=== PATIENT | male | born 1975 | race Caucasian/White ===

== ENCOUNTER 2017-10-08 17:28 | Emergency (ER) | payer OTHER ==
[2017-10-08] MEDS ORDERED: HYDROmorphone 0.5 MG/0.5 ML SYRINGE IVPUSH ONE (17:51)
[2017-10-08] MEDS ORDERED: Ondansetron 4 MG/2 ML SDV IVPUSH ONE (17:51)
[2017-10-08 18:23] VITALS: BP 107/89
[2017-10-08] MEDS ORDERED: Lidocaine 1% 50 ML MDV INJECT ONE (19:23)
--- NOTE | 2017-10-08 19:39 | EDM.PDOC ---
ED HPI GENERAL MEDICAL PROBLEM - General Chief Complaint: Upper Extremity Injury/Pain Stated Complaint: L) hand laceration Time Seen by Provider: 10/08/17 18:06 Source of Information: Reports: Patient History Limitations: Reports: No Limitations - History of Present Illness INITIAL COMMENTS - FREE TEXT/NARRATIVE: Patient is a 42-year-old male who presents ED complaining of multiple lacerations to the right hand. Patient was working with a cutting valve grinder and it got bound up and jumped hitting his hand causing the lacerations. He has 2 significant lacerations to the hand. The first being along the second metacarpal which is quite deep with foreign debris noted. Bleeding is present. The second is noted to the base of the right thumb and is not as significant. Tetanus status is unknown. He has no sensorimotor deficits. No pain noted to the remainder aspect of the hand or fingers. No pain to the wrist. No acute complaints at this time. Right Hand Pain Score (Numeric/FACES): 8 - Related Data Allergies Allergy/AdvReac Type Severity Reaction Status Date / Time Penicillins Allergy Rash Verified 10/08/17 18:02 Home Meds: Home Meds Acetaminophen/HYDROcodone [[place] 325-5 MG] 1 tab PO Q6H PRN #12 tablet 10/08/17 [Rx] Cephalexin [Keflex] 500 mg PO QID #40 cap 10/08/17 [Rx] Cholecalciferol (Vitamin D3) [Vitamin D3] 0 unit PO DAILY 10/08/17 [History] Vitamin B Complex 1 cap PO DAILY 10/08/17 [History] Past Medical History - Past Health History Medical/Surgical History: Denies Medical/Surgical History HEENT History: Reports: Impaired Vision Other HEENT History: wears eyeglasses - Infectious Disease History Infectious Disease History: Reports: Chicken Pox - Past Surgical History HEENT Surgical History: Reports: Tonsillectomy Social & Family History - Tobacco Use Smoking Status *Q: Never Smoker Second Hand Smoke Exposure: No - Caffeine Use Caffeine Use: Reports: Coffee - Recreational Drug Use Recreational Drug Use: No Review of Systems - Review of Systems Review Of Systems: ROS reveals no pertinent complaints other than HPI. ED EXAM, GENERAL - Physical Exam Exam: See Below Exam Limited By: No Limitations General Appearance: Alert, WD/WN, No Apparent Distress Ears: Hearing Grossly Normal Nose: Normal Inspection Throat/Mouth: Normal Voice, No Airway Compromise Neck: Normal Inspection, Supple Respiratory/Chest: No Respiratory Distress, No Accessory Muscle Use Cardiovascular: Normal Peripheral Pulses, Regular Rate, Rhythm Peripheral Pulses: 4+: Radial (R) Extremities: Other (Possibly 3 cm deep laceration to the dorsal aspect of the right hand along the second metacarpal. Foreign debris noted. In addition second laceration measuring approximately 2 cm along the first metacarpal subcutaneous no bleeding present. All proximal to this laceration other 0.5 cm laceration superficial. No bleeding. No sensory/motor deficits noted. ) Neurological: Alert, Oriented, CN II-XII Intact, Normal Cognition, No Motor/ Sensory Deficits Psychiatric: Normal Affect, Normal Mood Skin Exam: Warm, Dry ED TRAUMA EXTREMITY PROCEDURES - Laceration/Wound Repair Right Dorsal Hand Lac/Wound Length In cm: 3 Appearance: Subcutaneous, Muscle, Linear, Mildly Contaminated Distal NVT: Neuro & Vascular Intact, Other (Laceration extends through the flexor pollicus brevis and tendon of extensor carpi radial longus. Multiple metallic substances removed from the laceration site with extensive irrigation.) Local Anesthesia - Lidocaine (Xylocaine): 1% Plain Local Anesthetic Volume: Other (12) Skin Prep: Saline, Sterile Drape Exploration/Debridement/Repair: Wound Explored, Explored to Base, Moderate Debridement, Foreign Material Removed Closed With: Sutures Suture Size: 4-0 # of Sutures: 4 Suture Type: Prolene, Mattress Suture Size: 4-0 # of Sutures: 3 Repaired With: Vicryl Drain Placement: No Sterile Dressing Applied: Nurse Tetanus Status Addressed: Yes Complications: No Right Hand Lac/Wound Length In cm: 2 Appearance: Subcutaneous, Clean Distal NVT: Neuro & Vascular Intact, No Tendon Injury Anesthetic Type: Local Local Anesthesia - Lidocaine (Xylocaine): 1% Plain Local Anesthetic Volume: 4cc Skin Prep: Chlorhexidine (Hibiciens), Saline, Sterile Drape Exploration/Debridement/Repair: Wound Explored, In a Bloodless Field, Explored to Base, No Foreign Material Found Suture Size: 4-0 # of Sutures: 6 Suture Type: Prolene, Interrupted, Simple Drain Placement: No Sterile Dressing Applied: Nurse Tetanus Status Addressed: Yes Complications: No Course - Vital Signs Last Recorded V/S: Last Vital Signs Temp 98.1 F 10/08/17 17:40 Pulse 52 L 10/08/17 18:22 Resp 16 06/30/18 18:22 BP 107/89 10/08/17 18:22 Pulse Ox 95 10/08/17 18:22 - Orders/Labs/Meds Orders: Active Orders 24 hr Category Date Time Status Hand Comp Min 3V Rt [CR] Stat Exams 10/08/17 18:06 Taken Meds: Medications Discontinued Medications Generic Name Dose Route Start Last Admin Trade Name Freq PRN Reason Stop Dose Admin Hydromorphone HCl 0.5 mg 10/08/17 17:51 10/08/17 17:59 Dilaudid IVPUSH 10/08/17 17:52 0.5 mg ONETIME ONE Administration Cefazolin Sodium 1,000 mg/ 50 mls @ 200 mls/hr 10/08/17 19:58 10/08/17 20:10 Sodium Chloride IV 10/08/17 20:12 Not Given ONETIME ONE Cefazolin Sodium/Dextrose Confirm 10/08/17 20:06 10/08/17 20:10 Ancef Administered 10/08/17 20:07 200 mls/hr Dose Administration 50 mls @ as directed .ROUTE .STK-MED ONE Lidocaine HCl 50 ml 10/08/17 19:23 10/08/17 19:26 Xylocaine 1% INJECT 10/08/17 19:24 50 ml ONETIME ONE Administration Ondansetron HCl 4 mg 10/08/17 17:51 10/08/17 17:57 Zofran IVPUSH 10/08/17 17:52 4 mg ONETIME ONE Administration - Re-Assessments/Exams Free Text/Narrative Re-Assessment/Exam: X-ray of the right hand obtained. No bony abnormalities. Multiple radiopaque items present. Area was anesthetized with 1% lidocaine. Multiple metal fragments removed from broken grinding disc. It appears the valve grinder went through the flexor pollicus brevis and also portion of the tendon of extensor carpi radial longus. Lacerations closed with no complications. [address] Green Hand Surgeon production assembly supervisor Kirit Reyes. He recommended closure by primary intentions loosely, antibiotics upon discharge, volar splint applied with fingers extended, follow-up in his clinic on Tuesday. Departure - Departure Time of Disposition: 21:29 Disposition: Home, Self-Care 01 Condition: Good Clinical Impression: Laceration of hand involving extensor tendon Qualifiers: Encounter type: initial encounter Laterality: right Qualified Code(s): S61.411A - Laceration without foreign body of right hand, initial encounter - Discharge Information Prescriptions: Acetaminophen/HYDROcodone [[place] 325-5 MG] 1 tab PO Q6H PRN #12 tablet PRN Reason: Pain (Severe 7-10) Cephalexin [Keflex] 500 mg PO QID #40 cap Instructions: Laceration Care, Adult, Stitches, [place], or Adhesive Wound Closure, [id number] Referrals: Pete Green MD [Ordering Only Provider] - Forms: ED Department Discharge Additional Instructions: Take the full course of Keflex as prescribed. Utilize Tylenol and ibuprofen in alternating fashion for pain. For severe pain take [place] one tab every [address] this evening and/or while taking the [place]. Do not take Tylenol and [place] together. Cleanse site twice daily with soap and water, pat dry, reapply Triple Antibiotic ointment, and dressing. Keep area clean and dry. Also suggest soaking the hand. 3 times a a day, 30 minutes duration, in [facility]. Wear the splint continually only taking off to bathe. Apply ice to the affected area 3 times daily, 20 minutes in duration. Do not apply ice directly on the Skin. Elevate when able to reduce swelling and pain. Call Dr. Myers Office Tuesday to schedule an appt to be evaluated that day. Return to the E.D. if you develop any new or worsening symptoms. - My Orders Last 24 Hours: My Active Orders 10/08/17 18:06 Hand Comp Min 3V Rt [CR] Stat - Assessment/Plan Last 24 Hours: My Active Orders 10/08/17 18:06 Hand Comp Min 3V Rt [CR] Stat
--- NOTE | 2017-10-10 07:29 | CR ---
Right hand: Four views of the right hand were obtained. Soft tissue injury is identified along the lateral hand with soft tissue opacities presumably representing foreign bodies. Degenerative spurring is noted within the IP joint of the thumb. No additional bony abnormality is appreciated. Calcifications are seen around the wrist believed to be degenerative in etiology. Impression: 1. Soft tissue injury with soft tissue foreign bodies. 2. Other incidental findings. No acute bony abnormality is appreciated. Diagnostic code #3
== END 2017-10-08 21:48 | disposition home or self-care (01) ==
LOC: JD.ED 17:28
DX: S61.411A Laceration without foreign body of right hand, initial encounter (principal); Z88.0 Allergy status to penicillin; Z79.899 Other long term (current) drug therapy
CPT/HCPCS: 12001; 12042; 29125; 73130; 96365; 96375; 99284; J0690; J1170; J2405; 12002